=== PATIENT | male | born 1960 | race Caucasian/White ===

== ENCOUNTER 2023-08-06 13:38 | Inpatient (IN) | payer OTHER ==
[2023-08-06 14:13] LABS: #Monocytes 0.6 10x3/uL (0.0-1.1); #Neutrophils 4.2 10x3/uL (1.5-8.4); %Basophils 0.6 % (0.0-2.0); %Eosinophils 0.3 % (0.0-6.0); %Lymphocytes 21.1 % (18.0-47.0); %Monocytes 9.7 % (0.0-10.0); %Neutrophils 67.8 % (40.0-75.0); Hematocrit 42.1 % (38.8-50.0); Hemoglobin 15.4 g/dL (13.5-17.5); Mean Corpuscular HGB CONC 36.6 g/dL (32.0-36.0); Mean Corpuscular Hemoglobin 30.4 pg (27.0-33.0); Mean Platelet Volume 9.7 fl (7.4-10.4); Platelet Count 216 10x3/uL (150-450); RBC Distribution Width 12.2 % (11.5-14.5); Red Blood Cell (RBC) Count 5.07 10x6/uL (4.32-5.72); White Blood Cell (WBC) Count 6.2 10x3/uL (3.5-10.5)
[2023-08-06 14:23] LABS: ALT (SGPT) 24 U/L (8-55); AST (SGOT) 20 U/L (5-34); Albumin 4.1 g/dL (3.4-4.8); Alkaline Phosphatase 52 U/L (40-110); Anion Gap 11 mmol/L (10-20); BUN (Urea Nitrogen) 12 mg/dL (8.4-25.7); Bilirubin, Total 1.2 mg/dL (0.2-1.2); Calc. Creatinine Clearance 0 mL/min (70-130); Calcium 8.6 mg/dL (7.8-10.44); Carbon Dioxide 23 mmol/L (23-31); Chloride 93 mmol/L (98-107); Estimated GFR 100; Globulin 2.1 g/dL (2.4-3.5); Glucose 96 mg/dL (80-115); Potassium 3.8 mmol/L (3.5-5.1); Protein, Total 6.2 g/dL (5.8-8.1); Sodium 123 mmol/L (136-145)
[2023-08-06 14:31] LABS: Troponin I Less than 0.010 ng/mL (< 0.028)
[2023-08-06] MEDS ORDERED: Acetaminophen 500 MG TAB ONE (15:22)
[2023-08-06 16:45] VITALS: BMI 34.7
[2023-08-06 17:44] LABS: Troponin I Less than 0.010 ng/mL (< 0.028)
[2023-08-06] MEDS ORDERED: Ondansetron PF 4 MG/2 ML Vial IVP PRN (18:33)
[2023-08-06] MEDS ORDERED: Acetaminophen 325 MG TAB PO PRN (18:33)
[2023-08-06] MEDS ORDERED: Ondansetron ODT 4 MG TAB PO PRN (18:33)
[2023-08-06] MEDS ORDERED: Senokot S 8.6-50 MG TAB PO PRN (18:33)
[2023-08-06] MEDS ORDERED: Nitroglycerin 0.4 MG TAB (25 Tab Bottle) SL PRN (18:33)
[2023-08-06] MEDS ORDERED: Electrolyte Replacement Protocol 1 EACH FS SCH (18:45)
[2023-08-06] MEDS ORDERED: Electrolyte Replacement Protocol FS PRN (19:00)
[2023-08-06 19:49] LABS: Magnesium 2.2 mg/dL (1.6-2.6)
[2023-08-06 20:10] LABS: Troponin I 0.011 ng/mL (< 0.028)
[2023-08-06] MEDS: Atorvastatin Calcium 40 MG TAB PO SCH (21:36)
[2023-08-06] MEDS: Pantoprazole 40 MG VIAL IVP SCH (21:36)
[2023-08-06] MEDS: Sodium Chloride 0.9% 1,000 ML IV SCH (21:37)
[2023-08-06 23:26] LABS: Anion Gap 10 mmol/L (10-20); BUN (Urea Nitrogen) 15 mg/dL (8.4-25.7); Calc. Creatinine Clearance 143 mL/min (70-130); Calcium 8.6 mg/dL (7.8-10.44); Carbon Dioxide 25 mmol/L (23-31); Chloride 97 mmol/L (98-107); Estimated GFR 99; Glucose 89 mg/dL (80-115); Potassium 4.2 mmol/L (3.5-5.1); Sodium 128 mmol/L (136-145)
[2023-08-07 04:58] LABS: #Basophils 0.1 10x3/uL (0.0-0.2); #Eosinphils 0.1 10x3/uL (0.0-0.5); #Monocytes 0.6 10x3/uL (0.0-1.1); %Basophils 0.8 % (0.0-2.0); %Eosinophils 1.6 % (0.0-6.0); %Monocytes 9.4 % (0.0-10.0); %Neutrophils 62.4 % (40.0-75.0); Hematocrit 44.9 % (38.8-50.0); Hemoglobin 16.1 g/dL (13.5-17.5); Mean Corpuscular HGB CONC 35.9 g/dL (32.0-36.0); Mean Corpuscular Volume 83.8 fl (81.2-95.1); Mean Platelet Volume 10.3 fl (7.4-10.4); Platelet Count 220 10x3/uL (150-450); RBC Distribution Width 12.4 % (11.5-14.5); Red Blood Cell (RBC) Count 5.36 10x6/uL (4.32-5.72); White Blood Cell (WBC) Count 6.4 10x3/uL (3.5-10.5)
[2023-08-07] MEDS ORDERED: FLU VACC QS2023-24(6MOS UP)/PF 60 MCG/0.5 ML SYRINGE IM ONE (09:00)
[2023-08-07] MEDS: Lisinopril 10 MG TAB PO SCH (10:07)
[2023-08-07] MEDS: Aspirin Chewable 81 MG TAB PO SCH (10:07)
[2023-08-07] MEDS ORDERED: Sodium Chloride 0.65% Nasal 44 ML BOT EA NARE PRN (11:20)
[2023-08-07 11:29] LABS: Sodium 129 mmol/L (136-145)
[2023-08-07] MEDS: Sodium Chloride 1 GM TAB PO SCH (15:21)
[2023-08-07] MEDS: Calcium Carbonate 500 MG ChewTAB PO PRN (21:06)
[2023-08-08 04:27] LABS: Anion Gap 12 mmol/L (10-20); BUN (Urea Nitrogen) 10 mg/dL (8.4-25.7); Calc. Creatinine Clearance 143 mL/min (70-130); Calcium 8.9 mg/dL (7.8-10.44); Carbon Dioxide 22 mmol/L (23-31); Chloride 100 mmol/L (98-107); Estimated GFR 99; Glucose 103 mg/dL (80-115); Potassium 4.3 mmol/L (3.5-5.1); Sodium 130 mmol/L (136-145)
[2023-08-08] MEDS: Pepto Bismol Chew TAB PO PRN (10:51)
[2023-08-08 12:45] LABS: Sodium 131 mmol/L (136-145)
[2023-08-08 18:11] VITALS: BP 131/78; TEMP 98
== END 2023-08-08 16:21 | disposition home or self-care (01) | DRG 645 ==
LOC: CSHERS 13:38 → CSHTELE 15:05
PROVIDERS: ADMIT Internal Medicine; ATTEND Internal Medicine
DX: E22.2 Syndrome of inappropriate secretion of antidiuretic hormone (principal); I10 Essential (primary) hypertension; E66.9 Obesity, unspecified; F31.9 Bipolar disorder, unspecified; K21.9 Gastro-esophageal reflux disease without esophagitis; G47.33 Obstructive sleep apnea (adult) (pediatric); F39 Unspecified mood [affective] disorder; Z91.51 Personal history of suicidal behavior; Z88.5 Allergy status to narcotic agent; Z98.890 Other specified postprocedural states; Z68.34 Body mass index [BMI] 34.0-34.9, adult
CPT/HCPCS: 36415; 71045; 80048; 80053; 80061; 82533; 83735; 83880; 83930; 83935; 84295; 84300; 84443; 84484; 85025; 93005; 93306; 94760; 94762; C9113; J7050